=== PATIENT | female | born 1980 | race African-American/Black ===

== ENCOUNTER 2017-12-28 10:44 | Emergency (ER) | payer OTHER ==
[~2017-12-28] VITALS: Ht 165.1 cm; Wt 110.9 kg
[~2017-12-28 10:44] MED LIST: LEVO125T4 PO
[2017-12-28] MEDS ORDERED: KETOROLAC TROMETHAMINE 60 MG/2 ML VIAL IM ONE (11:45)
[2017-12-28 13:53] VITALS: BP 139/82
== END 2017-12-28 13:57 | disposition home or self-care (01) ==
LOC: EMS 10:44
DX: M25.511 Pain in right shoulder (principal); Z90.722 Acquired absence of ovaries, bilateral; Z79.899 Other long term (current) drug therapy; Z88.0 Allergy status to penicillin
CPT/HCPCS: 73030; 96372; 99284; J1885

== ENCOUNTER 2020-02-28 13:32 | Emergency (ER) | payer OTHER ==
[~2020-02-28] VITALS: Ht 165.1 cm; Wt 101.8 kg
[2020-02-28] MEDS ORDERED: ACETAMINOPHEN 500 MG TABLET PO ONE (14:15)
[2020-02-28] MEDS ORDERED: IBUPROFEN 600 MG TABLET PO ONE (14:15)
[2020-02-28] MEDS ORDERED: LIDOCAINE 1% 10 ML VIAL PERC ONE (14:15)
[2020-02-28 15:18] VITALS: BP 130/88
== END 2020-02-28 15:18 | disposition home or self-care (01) ==
LOC: EMS 13:32
DX: L02.512 Cutaneous abscess of left hand (principal); L03.012 Cellulitis of left finger
CPT/HCPCS: 10060; 99283; J3490

== ENCOUNTER 2020-08-06 11:20 | Emergency (ER) | payer OTHER ==
[~2020-08-06] VITALS: Ht 167.6 cm; Wt 109.1 kg
[2020-08-06 13:00] VITALS: BP 136/87
[2020-08-06 13:15] LABS: ANION GAP 13 mmol/L (8-16); CALCIUM, TOTAL 8.7 mg/dL (8.8-10.5); CARBON DIOXIDE 23 mmol/L (22-29); CHLORIDE 103 mmol/L (98-107); CREATININE 0.68 mg/dL (0.60-1.30); GLOMERULAR FILTR. RATE CALC > 60 mL/min (>60); GLUCOSE,RANDOM 89 mg/dL (70-110); POTASSIUM 4.5 mmol/L (3.5-5.1); SODIUM SERUM 139 mmol/L (136-145); UREA NITROGEN, BLOOD 11 mg/dL (7-18)
[2020-08-06 13:27] LABS: ALANINE AMINOTRANSFERASE 29 U/L (12-78); ALBUMIN 3.7 g/dL (3.4-5.0); ALKALINE PHOSPHATASE 45 U/L (46-116); ASPARTATE AMINOTRANSFERASE 28 U/L (15-37); BILIRUBIN,TOTAL 0.3 mg/dL (0.1-1.0); HCG,QUANTITATIVE < 1 mIU/mL (0-6); LIPASE 41 U/L (73-393); TOTAL PROTEIN, SERUM 6.9 g/dL (6.4-8.2)
[2020-08-06 13:45] LABS: BASOPHILS % (AUTO) 0.3 % (0.0-2.0); EOSINOPHILS % (AUTO) 2.3 % (1.0-6.0); HEMATOCRIT 37.2 % (36-46); HEMOGLOBIN 11.7 g/dL (12.0-16.0); LYMPHOCYTES % (AUTO) 25.3 % (22.0-44.0); MEAN CORPUSCULAR HEMOGLOBIN 26.4 pg (26.0-34.0); MEAN CORPUSCULAR HGB CONC 31.6 G/dL (31.0-37.0); MEAN CORPUSCULAR VOLUME 84 fL (80-100); MONOCYTES # (AUTO) 0.6 K/uL (0.1-1.0); MONOCYTES % (AUTO) 7.7 % (2.0-9.0); NEUTROPHILS % (AUTO) 64.4 % (40.0-70.0); PLATELET COUNT (AUTO) 295 K/uL (150-450); RED BLOOD CELL COUNT(AUTO) 4.44 MIL/uL (4.00-5.20); RED CELL DISTRIBUTION WIDTH 15.5 % (11.5-14.5)
== END 2020-08-06 15:39 | disposition home or self-care (01) ==
LOC: EMS 11:22
DX: R10.30 Lower abdominal pain, unspecified (principal); Z88.0 Allergy status to penicillin
CPT/HCPCS: 80053; 83690; 84702; 85025; 99283

== ENCOUNTER 2020-10-22 10:37 | Emergency (ER) | payer OTHER ==
[~2020-10-22] VITALS: Ht 165.1 cm; Wt 97.7 kg
[2020-10-22 11:07] VITALS: BP 129/79
== END 2020-10-22 11:31 | disposition home or self-care (01) ==
LOC: EMS 10:47
DX: H60.91 Unspecified otitis externa, right ear (principal); Z88.1 Allergy status to other antibiotic agents
CPT/HCPCS: 99283

== ENCOUNTER 2021-04-17 17:42 | Emergency (ER) | payer OTHER ==
[~2021-04-17] VITALS: Ht 167.6 cm; Wt 109.1 kg
[2021-04-17] MEDS ORDERED: HYDROCODONE/ACETAMINOPHEN 5-325 MG TABLET PO ONE (19:15)
[2021-04-17 19:19] LABS: BASOPHILS % (AUTO) 0.8 % (0.0-2.0); EOSINOPHILS % (AUTO) 2.1 % (1.0-6.0); HEMOGLOBIN 12.9 g/dL (12.0-16.0); LYMPHOCYTES # (AUTO) 1.8 K/uL (1.0-4.8); LYMPHOCYTES % (AUTO) 16.6 % (22.0-44.0); MEAN CORPUSCULAR HEMOGLOBIN 29.3 pg (26.0-34.0); MEAN CORPUSCULAR HGB CONC 33.8 G/dL (31.0-37.0); MEAN CORPUSCULAR VOLUME 87 fL (80-100); MONOCYTES # (AUTO) 0.6 K/uL (0.1-1.0); MONOCYTES % (AUTO) 5.8 % (2.0-9.0); NEUTROPHILS # (AUTO) 8.1 K/uL (1.8-7.7); NEUTROPHILS % (AUTO) 74.7 % (40.0-70.0); PLATELET COUNT (AUTO) 302 K/uL (150-450); RED BLOOD CELL COUNT(AUTO) 4.39 MIL/uL (4.00-5.20); RED CELL DISTRIBUTION WIDTH 15.4 % (11.5-14.5)
[2021-04-17 19:27] LABS: ANION GAP 8 mmol/L (8-16); CALCIUM, TOTAL 8.6 mg/dL (8.8-10.5); CARBON DIOXIDE 26 mmol/L (22-29); CHLORIDE 105 mmol/L (98-107); CREATININE 0.89 mg/dL (0.60-1.30); GLOMERULAR FILTR. RATE CALC > 60 mL/min (>60); GLUCOSE,RANDOM 111 mg/dL (70-110); POTASSIUM 3.7 mmol/L (3.5-5.1); SODIUM SERUM 139 mmol/L (136-145); UREA NITROGEN, BLOOD 13 mg/dL (7-18)
[2021-04-17 19:40] LABS: ALANINE AMINOTRANSFERASE 32 U/L (12-78); ALBUMIN 3.6 g/dL (3.4-5.0); ALKALINE PHOSPHATASE 46 U/L (46-116); BILIRUBIN,TOTAL 0.2 mg/dL (0.1-1.0); HCG,QUANTITATIVE 1 mIU/mL (0-6); LIPASE 52 U/L (73-393); TOTAL PROTEIN, SERUM 7.9 g/dL (6.4-8.2)
[2021-04-17] MEDS ORDERED: IBUPROFEN 600 MG TABLET PO ONE (19:45)
[2021-04-17 20:16] LABS: ASPARTATE AMINOTRANSFERASE 21 U/L (15-37)
[2021-04-17 22:45] VITALS: BP 140/80
== END 2021-04-17 22:45 | disposition home or self-care (01) ==
LOC: EMS 17:43
DX: K52.9 Noninfective gastroenteritis and colitis, unspecified (principal); Z88.0 Allergy status to penicillin
CPT/HCPCS: 74176; 80053; 83690; 84702; 85025; 99284

== ENCOUNTER 2021-05-23 12:12 | Emergency (ER) | payer OTHER ==
[~2021-05-23] VITALS: Ht 162.6 cm; Wt 111.0 kg
[2021-05-23 14:36] VITALS: BP 130/92
== END 2021-05-23 15:53 | disposition home or self-care (01) ==
LOC: EMS 12:17
DX: S93.402A Sprain of unspecified ligament of left ankle, initial encounter (principal); E03.9 Hypothyroidism, unspecified; Z88.1 Allergy status to other antibiotic agents; Z79.899 Other long term (current) drug therapy; X50.0XXA Overexertion from strenuous movement or load, initial encounter; Y93.51 Activity, roller skating (inline) and skateboarding; Y92.89 Other specified places as the place of occurrence of the external cause; Y99.8 Other external cause status
CPT/HCPCS: 29515; 99283

== ENCOUNTER 2022-11-02 14:00 | Emergency (ER) | payer OTHER ==
[~2022-11-02] VITALS: Ht 167.6 cm; Wt 110.0 kg
[2022-11-02 14:06] VITALS: BP 141/90; PULSE 91; RESP 16; TEMP 98.4
[2022-11-02] MEDS ORDERED: KETOROLAC TROMETHAMINE 30 MG/ML VIAL IM ONE (15:00)
== END 2022-11-02 17:05 | disposition home or self-care (01) ==
LOC: EMS 14:03
DX: M71.21 Synovial cyst of popliteal space [Baker], right knee (principal); M25.561 Pain in right knee; E03.9 Hypothyroidism, unspecified; Z90.722 Acquired absence of ovaries, bilateral; Z98.890 Other specified postprocedural states; Z88.8 Allergy status to other drugs, medicaments and biological substances
CPT/HCPCS: 99283; 73562; 96372; J1885

== ENCOUNTER 2023-04-03 17:44 | Emergency (ER) | payer OTHER ==
[~2023-04-03] VITALS: Ht 167.6 cm; Wt 90.9 kg
[2023-04-03 17:50] VITALS: BP 132/98; PULSE 94; RESP 18; TEMP 98.2
[2023-04-03] MEDS ORDERED: LOSA-382 PO (17:51)
[2023-04-03] MEDS ORDERED: LEVO150 PO (17:51)
[2023-04-03] MEDS ORDERED: FERR-82 PO (17:52)
[2023-04-03 18:55] LABS: BASOPHILS % (AUTO) 0.6 % (0.0-2.0); EOSINOPHILS % (AUTO) 2.4 % (1.0-6.0); HEMATOCRIT 37.2 % (36-46); HEMOGLOBIN 12.2 g/dL (12.0-16.0); LYMPHOCYTES # (AUTO) 1.8 K/uL (1.0-4.8); LYMPHOCYTES % (AUTO) 20.4 % (22.0-44.0); MEAN CORPUSCULAR HEMOGLOBIN 28.8 pg (26.0-34.0); MEAN CORPUSCULAR HGB CONC 32.7 G/dL (31.0-37.0); MEAN CORPUSCULAR VOLUME 88 fL (80-100); MONOCYTES # (AUTO) 0.6 K/uL (0.1-1.0); MONOCYTES % (AUTO) 6.4 % (2.0-9.0); NEUTROPHILS # (AUTO) 6.1 K/uL (1.8-7.7); NEUTROPHILS % (AUTO) 70.2 % (40.0-70.0); PLATELET COUNT (AUTO) 295 K/uL (150-450); RED BLOOD CELL COUNT(AUTO) 4.22 MIL/uL (4.00-5.20); RED CELL DISTRIBUTION WIDTH 15.5 % (11.5-14.5); WHITE BLOOD COUNT (AUTO) 8.7 K/uL (4.5-11.0)
[2023-04-03 18:59] LABS: INFLUENZA TYPE A NEGATIVE FOR TYPE A (NEGATIVE); INFLUENZA TYPE B NEGATIVE FOR TYPE B (NEGATIVE)
[2023-04-03 19:00] LABS: ANION GAP 11 mmol/L (8-16); CARBON DIOXIDE 27 mmol/L (22-29); CHLORIDE 102 mmol/L (98-107); CREATININE 0.75 mg/dL (0.60-1.30); GLOMERULAR FILTR. RATE CALC > 60 mL/min (>60); GLUCOSE,RANDOM 92 mg/dL (70-110); POTASSIUM 3.6 mmol/L (3.5-5.1); SODIUM SERUM 140 mmol/L (136-145); UREA NITROGEN, BLOOD 17 mg/dL (7-18)
[2023-04-03 19:08] LABS: TROPONIN I-HIGH SENSITIVITY 5 ng/L (<51)
[2023-04-03] MEDS ORDERED: BENZONATATE 100 MG CAPSULE PO ONE (19:15)
[2023-04-03] MEDS ORDERED: AZITHROMYCIN 500 MG TABLET PO ONE (19:15)
[2023-04-03 19:18] LABS: B-TYPE NATRIURETIC PEPTIDE 17 pg/mL (0-100)
[2023-04-03 19:25] LABS: ALANINE AMINOTRANSFERASE 16 U/L (12-78); ALBUMIN 3.6 g/dL (3.4-5.0); ALKALINE PHOSPHATASE 56 U/L (46-116); ASPARTATE AMINOTRANSFERASE 17 U/L (15-37); BILIRUBIN,TOTAL 0.2 mg/dL (0.1-1.0); CREATINE KINASE, TOTAL ONLY 375 U/L (26-192); TOTAL PROTEIN, SERUM 7.4 g/dL (6.4-8.2)
[2023-04-03] MEDS ORDERED: AZIT-103 PO (19:41)
[2023-04-03] MEDS ORDERED: ACET-3385 PO (19:41)
[2023-04-03] MEDS ORDERED: BENZ-227 PO (19:41)
[2023-04-03 19:45] LABS: COVID AG,FIA SOURCE NASAL SWAB
[2023-04-03 20:28] LABS: SARS-COV2 (COVID) ANTIGEN,FIA Positive (Negative)
== END 2023-04-03 20:15 | disposition home or self-care (01) ==
LOC: EMS 17:52
DX: J18.9 Pneumonia, unspecified organism (principal); R05.9 Cough, unspecified; E03.9 Hypothyroidism, unspecified; Z90.722 Acquired absence of ovaries, bilateral; Z98.890 Other specified postprocedural states; Z88.8 Allergy status to other drugs, medicaments and biological substances; Z20.822 Contact with and (suspected) exposure to COVID-19
CPT/HCPCS: 99285; 71045; 87426; 80053; 82550; 83880; 84484; 84703; 85025; 87804; 36415; 93005; Q9967

== ENCOUNTER 2024-03-11 09:51 | Emergency (ER) | payer OTHER ==
[~2024-03-11] VITALS: Ht 167.6 cm; Wt 109.1 kg
[~2024-03-11 09:51] MED LIST changes: +ACET-3385 PO; +AZIT-164 PO; +BENZ-227 PO; +FERR-82 PO; -LEVO125T4 PO; +LEVO150 PO; +LOSA-382 PO
[2024-03-11 09:55] VITALS: BP 172/98; PULSE 81; RESP 20; TEMP 98.9; O2SAT 99
[2024-03-11] MEDS ORDERED: ROSU10TA72 PO (09:55)
[2024-03-11] MEDS ORDERED: CARV6.2534 PO (09:55)
[2024-03-11] MEDS ORDERED: LEVO150T11 PO (09:55)
[2024-03-11] MEDS ORDERED: OLME40TA18 PO (09:55)
[2024-03-11 10:33] LABS: COVID AG,FIA SOURCE NASAL SWAB
[2024-03-11 11:13] LABS: SARS-COV2 (COVID) ANTIGEN,FIA Negative (Negative)
[2024-03-11 11:14] LABS: INFLUENZA TYPE A NEGATIVE FOR TYPE A (NEGATIVE); INFLUENZA TYPE B NEGATIVE FOR TYPE B (NEGATIVE)
== END 2024-03-11 13:06 | disposition left against medical advice (07) ==
LOC: EMS 09:53
DX: J02.9 Acute pharyngitis, unspecified (principal); R52 Pain, unspecified; Z53.21 Procedure and treatment not carried out due to patient leaving prior to being seen by health care provider; Z20.822 Contact with and (suspected) exposure to COVID-19
CPT/HCPCS: 87804